=== PATIENT | female | born 1985 | race Caucasian/White ===

== ENCOUNTER 2017-05-25 08:15 | Day surgery (SDC) | payer OTHER ==
[~2017-05-25] VITALS: Ht 162.6 cm; Wt 81.7 kg
[~2017-05-25 08:15] MED LIST: ACYCLOVIR400 MG PO; ADVIL200 M1 PO; ALBUTEROL2.5 MG/0.5 INH; BUTALB-ACETAMI1 EACH PO; CARAFATE1 GM PO; GABAPENTIN300 MG PO; KEFLEX500 MG PO; NORETHINDRONE0.35 MG PO; PERCOCET 5-3251 EACH PO; PRENATAL MULTI1 EAC3 PO; PRILOSEC20 MG PO; PROTONIX40 MG PO; SUDOGEST30 MG PO; VITAMIN B-12500 MCG PO; VITAMIN D31000 UNI1 PO; ZYRTEC10 MG PO
--- NOTE | 2017-05-25 10:03 | NUR ---
05/25/17 1003 Zack Owen PATIENT TALKS TO NURSE, OXYGEN TITRATED TO ROOM AIR, PATIENT SUNGLASSES PLACED AND PATIENT OPENS EYES.
--- NOTE | 2017-05-25 10:36 | NUR ---
PT REPORTS BEING COLD. THIAGO PEACE ON WARM. CALL LIGHT W/IN REACH. ICED WATER @ BS.
--- NOTE | 2017-05-25 11:48 | NUR ---
PT UP TO BR W/RN STANDBY. PT AMBULATES WELL AND REPORTS "A LITTLE" DIZZINESS. PT VOIDS AND IS BACK IN BED. THIAGO PEACE ON WARM. CALL LIGHT W/IN REACH. PT REPORTS SHE DOES NOT WANT SOMETHING FOR PAIN CURRENTLY, BUT MAY NEED AN RX FOR HOME. CALL TO .
--- NOTE | 2017-05-25 11:52 | NUR ---
NO NEW ORDERS RECEIVED FROM MD. MD REPORTS THE PLASTIC INSERTED INTO RIGHT NARE IS SECURED IN THE LEFT NARE. THIS IS RELAYED TO PATIENT AND SHE VERBALIZES UNDERSTANDING.
--- NOTE | 2017-07-13 09:33 | OR ---
[facility] [address], [place] [address] Signed DATE OF PROCEDURE: 05/25/17 PREOPERATIVE DIAGNOSIS: Right intranasal lesion. POSTOPERATIVE DIAGNOSIS: Right intranasal lesion. PROCEDURE: Excision of right intranasal lesion. SURGEON: Killian Ventura MD. ANESTHESIA: General LMA. SKIDDER OPERATOR: Padmini Mckinney. PREOP HISTORY Pepper is a 32-year-old young lady who had septoplasty, cautery of the inferior turbinates several months ago. 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 She is being taken to the operating for the above-mentioned procedures. OPERATIVE PROCEDURE AND FINDINGS After informed consent, the patient was taken to the operating room, placed in supine position where general LMA anesthesia was induced. The patient received preoperative intranasal oxymetazoline. The patient and procedure were verified. Headlight speculum exam of the nasal cavity showed the left side to be clear. The right side has a small scar band posteriorly from the inferior turbinate to the septum. The scar band was excised with Irma. A Ackerman splint was then placed on the right side with the transseptal 2-0 silk stitch. Minimal bleeding. The stent was verified in proper position. The patient's pharynx was suctioned clear blood secretions. The patient was awakened, extubated, transported to the recovery room in good condition. No complications. Blood loss minimal. No specimen, no drains. Killian Ventura MD GC/Modl /[id number] Electronically Signed By: KILLIAN VENTURA MD 07/13/17 0933 PATIENT NAME: PEPPER ARNETT OPERATIVE REPORT DATE OF : 89 PHYSICIAN: KILLIAN VENTURA MD REPORT #: [id number] REPORT IS CONFIDENTIAL AND NOT TO BE RELEASED WITHOUT AUTHORIZATION [address] [place], [place] [address] Signed cc: DEION Dangelo Electronically Signed By: KILLIAN VENTURA MD 07/13/17 09 PATIENT NAME: PEPPER ARNETT OPERATIVE REPORT DATE OF : 89 PHYSICIAN: KILLIAN VENTURA MD REPORT #: [id number] REPORT IS CONFIDENTIAL AND NOT TO BE RELEASED WITHOUT AUTHORIZATION
== END 2017-05-25 12:12 | disposition home or self-care (01) ==
LOC: DS 08:15
PROVIDERS: Otolaryngology
PROC: 09BK0ZZ Excision of Nasal Mucosa and Soft Tissue, Open Approach (ICD-10-PCS; principal; 2017-05-25 09:45)
DX: J34.89 Other specified disorders of nose and nasal sinuses (principal); J45.909 Unspecified asthma, uncomplicated; K21.9 Gastro-esophageal reflux disease without esophagitis; Z88.5 Allergy status to narcotic agent; Z88.1 Allergy status to other antibiotic agents; Z90.49 Acquired absence of other specified parts of digestive tract
CPT/HCPCS: 00160; 84703; J1885; J2250; J2550; J7120

== ENCOUNTER 2021-07-31 07:40 | Day surgery (SDC) | payer OTHER ==
--- NOTE | 2021-07-29 13:01 | NUR ---
PT WAS SET UP FOR PHONE. PHONE PATIENT TWICE ONCE AT 12:50 AND AGAIN AT 13:02. LEFT MESSAGE BOTH TIMES.
--- NOTE | 2021-07-29 13:13 | NUR ---
PT SHOWED UP FOR INPERSON PRE ADMIT RATHER THAN BY PHONE.
[~2021-07-31] VITALS: Ht 162.6 cm; Wt 86.4 kg
--- NOTE | ~2021-07-31 | OR ---
[facility] [address] [place], [place] [address] Draft DATE OF OPERATION: 07/31/2021 SURGEON: Nancy Scales DO PREOPERATIVE DIAGNOSES: 1. Abnormal uterine bleeding. 2. Severe anxiety. POSTOPERATIVE DIAGNOSES: 1. Abnormal uterine bleeding. 2. Severe anxiety. PROCEDURES PERFORMED: 1. Hysteroscopy. 2. Dilation and curettage. ANESTHESIA: General. ESTIMATED BLOOD LOSS: 5 mL. SPECIMEN: Endometrial curettings. FINDINGS: Normal external genitalia, vagina, and cervix. On hysteroscopy, normal cervical canal and endometrial cavity. No polyps or fibroids. Thin-appearing endometrium. Normal tubal ostia. COMPLICATIONS: None. INDICATIONS: Ms. Arnett is a pleasant 36-year-old female, who presented with several months of abnormal uterine bleeding despite OCP therapy. The patient reports that she is passing jo tissue. Recommended hysteroscopy D and C for further evaluation of endometrial cavity and endometrial biopsy. The patient with severe anxiety and requested that procedure to be performed in the operating room. Risks, benefits, and alternatives were discussed in detail with the patient. The patient understands and wished to proceed PATIENT NAME: CHELSY ARNETT OPERATIVE REPORT DATE OF : 89 REPORT #: [id number] PHYSICIAN: NANCY SCALES DO PCP: NO PRIMARY CARE PHYSICIAN REPORT IS CONFIDENTIAL AND NOT TO BE RELEASED WITHOUT AUTHORIZATION [facility] [address] [place] [id number] Draft with the procedure. TECHNIQUE: The patient was taken into the operating room. A time-out was performed to confirm correct patient and correct procedure. General anesthesia was adequately established. The patient was prepped and draped in the dorsal lithotomy position with her feet in Yellofin stirrups. No heparin or antibiotics were indicated. A weighted speculum was placed in the vagina and the anterior lip of the cervix was grasped with an Allis clamp. The cervix was serially dilated using Hegar dilator serial #7. An operative hysteroscope was then placed in the cervical os and advanced under direct visualization through the cervical canal into the uterine cavity. Normal-appearing uterine cavity with no polyps, fibroids, and normal tubal ostia bilaterally was identified. MyoSure Lite device was selected and advanced through the operating channel. Circumferential curettage was performed sampling the endometrium. The camera and hysteroscope were removed and the patient was taken to PACU in good and stable condition. Sponge, needle, and instrument count was correct x2 at the end of the procedure. Fluid deficit was 280 mL at the end of the procedure. DO RUBY Kurtz/MODL /[id number] Copies: ~ PATIENT NAME: CHELSY ARNETT OPERATIVE REPORT DATE OF : 89 REPORT #: [id number] PHYSICIAN: NANCY SCALES DO PCP: NO PRIMARY CARE PHYSICIAN REPORT IS CONFIDENTIAL AND NOT TO BE RELEASED WITHOUT AUTHORIZATION
[~2021-07-31 07:40] MED LIST changes: +B-COMPLEX WITH1 EAC1 PO; +ONE-A-DAY VIT200 MC1 PO; +ZINC50 M1 PO
[2021-07-31] MEDS ORDERED: HYDROCHLOROTHIA25 MG PO (08:00)
[2021-07-31] MEDS ORDERED: RIZATRIPTAN10 M1 PO (08:01)
[2021-07-31] MEDS ORDERED: ZOFRAN4 MG PO (08:01)
--- NOTE | 2021-07-31 08:42 | NUR ---
PATIENT REQUESTED MEDICATION. 2MG OF IV VERSED GIVEN PER LIAM SIMON. IN ROOM. BED RAILS UP. PATIENT INSTRUCTED TO NOT GET OUT OF BED WITHOUT HELP.
--- NOTE | 2021-07-31 08:51 | NUR ---
PATIENT UP TO RESTROOM WITH 1 RN ASSIST AND . GAIT STEADY.
--- NOTE | 2021-07-31 10:21 | NUR ---
07/31/21 Michelle1 Mari Boo-PT ARRIVES IN PACU WITH OPA. JAW THRUST BY EDELMIRA GARCIA RN AND FOGGING PRESENT. PT'S HEAD REPOSITIONED AND FOGGING IN MASK PRESENT WITHOUT NEED FOR JAW THRUST. VSS. PT UNRESPONSIVE TO VERBAL/PAINFUL STIMULUS AT THIS TIME. LIAM TRIVEDI CRNA AT BEDSIDE. DOREEN PAD C/D/I.
--- NOTE | 2021-07-31 11:00 | NUR ---
PATIENT BACK TO ROOM FROM PACU. RECEIVED REPORT FROM FELICIA TYSON. PATIENT IS VERY SLEEPY, EASY AROUSABLE TO ANSWER QUESTIONS. VSS. RATES PAIN 0/10 DENIES NAUSEA. DOREEN PAD HAS NO DRAINAGE. AT BEDSIDE. CALL LIGHT WITHIN REACH. PROVIDED PATIENT WITH WATER.
--- NOTE | 2021-07-31 11:50 | NUR ---
PATIENT UP TO BEDSIDE COMMODE. GAIT STEADY AND TOERTED WELL. LIGHT BLEEDING NOTED. VOIDED 800ML.
--- NOTE | 2021-07-31 12:05 | NUR ---
PATIENT RESTING IN BED. SHE IS AWAKE. VSS. DENIES NAUSEA. DOREEN PAD WITH A SAMLL AMOUNT OF BLOOD. SHE RATES HER PAIN 5/10. AT BEDSIDE. CALL LIGHT WITHIN REACH.
--- NOTE | 2021-07-31 12:18 | NUR ---
PATIENT REQUESTED PAIN MEDICATION BUT WOULD LIKE A 1/4 TABLET. 1/4 TABLET OF PAIN MEDICATION GIVEN TO RENEENET ALONG WITH 4MG IV ZOFRAN. SOLO TYSON WAS WITH ME WHEN CUTTING THE PAIN PILL AND WAS MY WITNESS WITH WASTING REMAINING PILL.
--- NOTE | 2021-07-31 13:12 | NUR ---
PATIENT RESTING IN BED. VSS. DENIES NAUSEA. RATES PAIN 2/10. DOREEN PAD CLEAN, DRY, AND INTACT. WITH PATIENT. PATIENT IS READY TO GO HOME.
--- NOTE | 2021-07-31 14:13 | NUR ---
[id number] PATIENT WITH DISCHARGE INSTRUCTIONS. ALL QUESTIONS ANSWERED. PATIENT WANTED TO EAT LUNCH IN THE [place]. DISCHARGED WITH AND SOLO TYSON.
== END 2021-07-31 13:30 | disposition home or self-care (01) ==
LOC: DS 07:40 → OPS 07:40
PROVIDERS: ATTEND Obstetrics & Gynecology
PROC: 0UDB8ZX Extraction of Endometrium, Via Natural or Artificial Opening Endoscopic, Diagnostic (ICD-10-PCS; principal; 2021-07-31 09:15)
DX: N93.9 Abnormal uterine and vaginal bleeding, unspecified (principal); F41.9 Anxiety disorder, unspecified; Z87.891 Personal history of nicotine dependence; Z88.1 Allergy status to other antibiotic agents; Z88.8 Allergy status to other drugs, medicaments and biological substances
CPT/HCPCS: 00952; 88305; J1100; J1885; J2250; J2405; J2704; J2765; J3010; J7121